=== PATIENT | male | born 1970 | race Asian ===

== ENCOUNTER 2019-02-20 00:08 | Emergency (ER) | payer OTHER ==
--- NOTE | 2019-02-20 01:13 | XRay Report ---
PROCEDURE: XR CHEST 1V AP TECHNIQUE: An upright view of the chest was obtained. HISTORY: Chest Pain COMPARISONS: None FINDINGS: A portion of the lateral aspect of the left hemithorax is cut off the image. The visualized lung fiel ds are clear. The heart size is normal. Pleural fluid is not seen. The skeletal structures do not federico w any acute changes. There is a pacemaker device overlying the left chest wall. IMPRESSION: No acute cardiopulmonary process. Suboptimal positioning.. This document is electronically signed by Ronald Mcdowell MD., February 20 2019 01:11:45 AM ET
[2019-02-20 01:27] LABS: Hematocrit 46.4 % (35.5-45.6); Hemoglobin 14.7 gm/dl (11.8-15.2); Mean Corpuscular HGB Conc 32 % (32-34); Platelet Count 279 K/mm3 (140-440); Red Blood Count 6.66 M/mm3 (3.65-5.03); Red Cell Distribution Width 15.1 % (13.2-15.2)
[2019-02-20 01:29] LABS: Mean Corpuscular Volume 70 fl (84-94)
[2019-02-20 02:00] LABS: BUN/Creatinine Ratio 7; Blood Urea Nitrogen 10 mg/dL (9-20); Calcium 9.1 mg/dL (8.4-10.2); Hemolysis Index 17
[2019-02-20] MEDS ORDERED: LOPRESSOR PO ONE (02:06)
--- NOTE | 2019-02-20 02:06 | Emergency Department Report ---
ED General Adult HPI - General Chief complaint: Arrhythmia/Palpitations Stated complaint: HEART PALPITATIONS Time Seen by Provider: 02/20/19 01:34 Source: patient, RN notes reviewed, old records reviewed Mode of arrival: Ambulatory Limitations: No Limitations - History of Present Illness Initial comments: This is a 48-year-old gentleman. The patient is not known to this provider previously. The patient has a current screw remover, Dr. Neal Jenkins, with [facility], and has a follow-up appointment March 20. Cardiology phone number; [phone]. Patient has a past history of atrial fibrillation, not currently on systemic anticoagulation, in 2017, an echocardiogram which showed normal left ventricular systolic function, with ejection fraction of 50-55%. Patient reports that his private screw remover has discontinued his antico agulation, and discontinued chitra blockade medications. The patient presents today with a complaint of pain was intermittent palpitations and sensation of heart racing. The symptoms are present for approximately 7 months. They're intermittent. They do not radiate anywhere. I do not have exacerbating or relieving factors. The patient denies DVT, pulmonary embolus risk factors. He denies physical pain. He denies change in exercise tolerance. He is following up closely with his outpatient screw remover, who has fitted him with an external recording device. The patient reports no drug use, reports that he works out on a frequent basis, and reports no stimulants consumption. -: Gradual, month(s) Severity scale (0 -10): 4 Consistency: intermittent Improves with: none Worsens with: none - Related Data Previous Rx's Medication Instructions Recorded Last Taken Type Apixaban [Eliquis] 5 mg PO Q12HR #60 tablet 05/16/17 Unknown Rx Aspirin EC [Aspirin Enteric Coated 81 mg PO QDAY #30 tablet 05/16/17 Unknown Rx TAB] Levothyroxine [Synthroid] 125 mcg PO QAM #30 tablet 05/16/17 Unknown Rx Lovastatin [Altoprev] 20 mg PO QPM #30 tab.er.24h 05/16/17 Unknown Rx Metoprolol [Lopressor TAB] 12.5 mg PO BID #60 tablet 05/16/17 Unknown Rx amLODIPine [Norvasc] 5 mg PO DAILY #30 tablet 05/16/17 Unknown Rx Aspirin [Aspirin BABY CHEW TAB] 81 mg PO QDAY #30 tab.chew 02/20/19 Unknown Rx Allergies Allergy/AdvReac Type Severity Reaction Status Date / Time No Known Allergies Allergy Verified 06/20/14 01:13 ED Review of Systems ROS: Stated complaint: HEART PALPITATIONS Other details as noted in HPI Constitutional: denies: fever, malaise Eyes: denies: vision change ENT: denies: epistaxis Respiratory: denies: cough Cardiovascular: palpitations. denies: chest pain Gastrointestinal: denies: abdominal pain, nausea, vomiting Genitourinary: denies: urgency, dysuria Musculoskeletal: denies: back pain Skin: denies: lesions Neurological: denies: headache, weakness Psychiatric: anxiety ED Past Medical Hx - Past Medical History Previous Medical History?: Yes Hx Hypertension: Yes Hx HIV: No Additional medical history: Chest pain. Hypothyroid - Surgical History Past Surgical History?: No - Social History Smoking Status: Never Smoker Substance Use Type: None - Medications Home Medications: Home Medications Medication Instructions Recorded Confirmed Last Taken Type Apixaban [Eliquis] 5 mg PO Q12HR #60 tablet 05/16/17 Unknown Rx Aspirin EC [Aspirin Enteric Coated 81 mg PO QDAY #30 tablet 05/16/17 Unknown Rx TAB] Levothyroxine [Synthroid] 125 mcg PO QAM #30 tablet 05/16/17 Unknown Rx Lovastatin [Altoprev] 20 mg PO QPM #30 tab.er.24h 05/16/17 Unknown Rx Metoprolol [Lopressor TAB] 12.5 mg PO BID #60 tablet 05/16/17 Unknown Rx amLODIPine [Norvasc] 5 mg PO DAILY #30 tablet 05/16/17 Unknown Rx Aspirin [Aspirin BABY CHEW TAB] 81 mg PO QDAY #30 tab.chew 02/20/19 Unknown Rx ED Physical Exam - General Limitations: No Limitations General appearance: alert, in no apparent distress - Head Head exam: Present: atraumatic, normocephalic - Eye Eye exam: Present: normal appearance, EOMI. Absent: nystagmus - ENT ENT exam: Present: normal exam, normal orophraynx, mucous membranes moist, normal external ear exam - Neck Neck exam: Present: normal inspection, full ROM. Absent: tenderness, meningismus - Respiratory Respiratory exam: Present: normal lung sounds bilaterally. Absent: respiratory distress - Cardiovascular Cardiovascular Exam: Present: regular rate, irregular rhythm, normal heart sounds. Absent: bradycardia, tachycardia, systolic murmur, diastolic murmur, rubs, gallop - GI/Abdominal GI/Abdominal exam: Present: soft. Absent: distended, tenderness, guarding, rebound, rigid, pulsatile mass - Rectal Rectal exam: Present: deferred - Extremities Exam Extremities exam: Present: normal inspection, full ROM, other (2+ pulses noted in the bilateral upper, lower extremities. Compartments soft. No long bony tenderness. The pelvis is stable.). Absent: pedal edema, joint swelling, calf tenderness - Back Exam Back exam: Present: normal inspection, full ROM. Absent: tenderness, CVA tenderness (R), paraspinal tenderness, vertebral tenderness - Neurological Exam Neurological exam: Present: alert, oriented X3, CN II-XII intact, normal gait, other (Extraocular movements intact. Tongue midline. No facial droop. Facial sensation intact to light touch in the V1, V2, V3 distribution bilaterally. 5 and 5 strength in 4 extremities.. Sensation is intact to light touch in 4 extremities.). Absent: motor sensory deficit - Psychiatric Psychiatric exam: Present: normal affect, normal mood, anxious - Skin Skin exam: Present: warm, dry, intact, normal color. Absent: rash ED Course Vital Signs 02/20/19 02/20/19 02/20/19 00:23 01:28 01:29 Temperature 97.6 F Pulse Rate 109 H 106 H Respiratory 16 19 22 Rate Blood Pressure 146/102 O2 Sat by Pulse 100 100 99 Oximetry 02/20/19 02/20/19 02/20/19 01:30 01:45 02:00 Temperature Pulse Rate 93 H 89 101 H Respiratory 22 14 10 L Rate Blood Pressure 128/88 129/91 120/90 O2 Sat by Pulse 100 100 100 Oximetry 02/20/19 02/20/19 02/20/19 02:15 02:20 02:31 Temperature Pulse Rate 94 H 78 74 Respiratory 19 22 Rate Blood Pressure 120/90 135/80 135/80 O2 Sat by Pulse 100 98 Oximetry 02/20/19 02/20/19 02/20/19 02:45 03:00 03:15 Temperature Pulse Rate 82 84 91 H Respiratory 20 11 L 18 Rate Blood Pressure 135/80 121/90 121/90 O2 Sat by Pulse 99 98 98 Oximetry 02/20/19 02/20/19 02/20/19 03:30 03:45 04:00 Temperature Pulse Rate 73 79 71 Respiratory 13 16 10 L Rate Blood Pressure 124/85 124/85 122/83 O2 Sat by Pulse 99 99 97 Oximetry 02/20/19 02/20/19 02/20/19 04:15 04:30 04:45 Temperature Pulse Rate 79 63 77 Respiratory 15 18 18 Rate Blood Pressure 122/83 133/72 133/72 O2 Sat by Pulse 99 97 99 Oximetry 02/20/19 02/20/19 05:00 05:15 Temperature Pulse Rate 67 74 Respiratory 13 13 Rate Blood Pressure 122/89 122/89 O2 Sat by Pulse 99 Oximetry - Reevaluation(s) Reevaluation #1: 02/20/19 05:32 Differential diagnosis, including but not limited to: Thyroid derangement, electrolyte derangement, conduction derangement, atrial fibrillation, atrial flutter Assessment and plan: 48-year-old gentleman with known history of A. fib, flutter, no pulmonary embolus or DVT risk factors, low risk by well's criteria, not hypoxic, reportedly a limited exercise tolerance, low risk by MINGO score, low risk by heart score, with variable rhythm. He is currently in atrial fibrillation, with very conduction. At certain points in time, he develops atrial tachycardia, with variable ventricular conduction, intermittent sinus part is, and intermittent sinus rhythm. His symptoms have been present for months, and he is not acutely decompensated. His EKGs were transmitted to my colleague screw remover on-call, Dr. Dorman, who evaluated his initial EKG and rhythm strips, and was in agreement that the patient did not appear to have a high-grade block, or potentially lethal rhythm. The patient is currently in flutter, and he is low risk by the Chads 2 vasc score Contacted the screw remover covering for his primary screw remover, Arias Segovia MD, and he indicated that Dr. Jenkins will be contacted during normal business hours, and at the patient will be given expedited follow-up. The patient is resting comfortably in the emergency room now, in no acute distress, hemodynamically stable. Aches when laboratory findings and EKG findings to the patient, as well as my discussion with his screw remover covering colleague. The patient is medically suitable to be discharged at this point in time. Return precautions are reviewed. ED Medical Decision Making - Lab Data Result diagrams: 02/20/19 01:04 02/20/19 01:04 Vital Signs 02/20/19 02/20/19 02/20/19 00:23 01:28 01:29 Temperature 97.6 F Pulse Rate 109 H 106 H Respiratory 16 19 22 Rate Blood Pressure 146/102 O2 Sat by Pulse 100 100 99 Oximetry 02/20/19 02/20/19 02/20/19 01:30 01:45 02:00 Temperature Pulse Rate 93 H 89 101 H Respiratory 22 14 10 L Rate Blood Pressure 128/88 129/91 120/90 O2 Sat by Pulse 100 100 100 Oximetry 02/20/19 02/20/19 02/20/19 02:15 02:20 02:31 Temperature Pulse Rate 94 H 78 74 Respiratory 19 22 Rate Blood Pressure 120/90 135/80 135/80 O2 Sat by Pulse 100 98 Oximetry 02/20/19 02/20/19 02/20/19 02:45 03:00 03:15 Temperature Pulse Rate 82 84 91 H Respiratory 20 11 L 18 Rate Blood Pressure 135/80 121/90 121/90 O2 Sat by Pulse 99 98 98 Oximetry 02/20/19 02/20/19 02/20/19 03:30 03:45 04:00 Temperature Pulse Rate 73 79 71 Respiratory 13 16 10 L Rate Blood Pressure 124/85 124/85 122/83 O2 Sat by Pulse 99 99 97 Oximetry 02/20/19 02/20/19 02/20/19 04:15 04:30 04:45 Temperature Pulse Rate 79 63 77 Respiratory 15 18 18 Rate Blood Pressure 122/83 133/72 133/72 O2 Sat by Pulse 99 97 99 Oximetry 02/20/19 02/20/19 05:00 05:15 Temperature Pulse Rate 67 74 Respiratory 13 13 Rate Blood Pressure 122/89 122/89 O2 Sat by Pulse 99 Oximetry Lab Results 02/20/19 02/20/19 02/20/19 Range/Units 01:04 01:04 02:23 WBC 4.2 L (4.5-11.0) K/mm3 RBC 6.66 H (3.65-5.03) M/mm3 Hgb 14.7 (11.8-15.2) gm/dl Hct 46.4 H (35.5-45.6) % MCV 70 L (84-94) fl MCH 22 L (28-32) pg MCHC 32 (32-34) % RDW 15.1 (13.2-15.2) % Plt Count 279 (140-440) K/mm3 Seg Neutrophils % Wardrobe Attendant Sodium 139 (137-145) mmol/L Potassium 4.4 (3.6-5.0) mmol/L Chloride 100.8 (98-107) mmol/L Carbon Dioxide 29 (22-30) mmol/L Anion Gap 14 mmol/L BUN 10 (9-20) mg/dL Creatinine 1.4 (0.8-1.5) mg/dL Estimated GFR 54 ml/min BUN/Creatinine Ratio 7 % Glucose 96 (75-100) mg/dL Calcium 9.1 (8.4-10.2) mg/dL Magnesium (1.7-2.3) mg/dL Troponin T < 0.010 < 0.010 (0.00-0.029) ng/mL TSH (0.270-4.200) mlU/mL 02/20/19 02/20/19 Range/Units 02:23 02:23 WBC (4.5-11.0) K/mm3 RBC (3.65-5.03) M/mm3 Hgb (11.8-15.2) gm/dl Hct (35.5-45.6) % MCV (84-94) fl MCH (28-32) pg MCHC (32-34) % RDW (13.2-15.2) % Plt Count (140-440) K/mm3 Seg Neutrophils % Sodium (137-145) mmol/L Potassium (3.6-5.0) mmol/L Chloride (98-107) mmol/L Carbon Dioxide (22-30) mmol/L Anion Gap mmol/L BUN (9-20) mg/dL Creatinine (0.8-1.5) mg/dL Estimated GFR ml/min BUN/Creatinine Ratio % Glucose (75-100) mg/dL Calcium (8.4-10.2) mg/dL Magnesium 2.00 (1.7-2.3) mg/dL Troponin T (0.00-0.029) ng/mL TSH 2.840 (0.270-4.200) mlU/mL - EKG Data 02/20/19 05:36 Atrial flutter, 59 bpm, normal axis, QTC prolonged, motion artifact, not consistent with ST elevation myocardial infarction. Variable ventricular rate. EKG #1 shows atrial tachycardia, variable ventricular conduction, atrial rate approximately 170 bpm, normal axis, QTC prolonged, MT interval prolonged, premature ventricular contractions, abnormal EKG, not consistent with ST elevation myocardial infarction. - Radiology Data Radiology results: report reviewed, image reviewed X-ray of the chest is negative for acute disease. Critical care attestation.: If time is entered above; I have spent that time in minutes in the direct care of this critically ill patient, excluding procedure time. ED Disposition Clinical Impression: Atrial flutter Disposition: DC- TO HOME OR SELFCARE Is pt being admited?: No Does the pt Need Aspirin: No Condition: Stable Instructions: Supraventricular Tachycardia (ED), Palpitations (ED) Additional Instructions: Avoid consumption of caffeinated beverages, stimulants, caffeine, make certain to get 7-8 hours of good quality sleep every night, and follow-up with your screw remover within the next 7-10 days. Take the aspirin as directed, return to the emergency room right away with you, worsen or different symptoms, or symptoms not present on initial ER evaluation. Referrals: [facility] [Provider Group] - 7-10 days
[2019-02-20 05:41] VITALS: BP 122/83
[2019-02-20 07:41] LABS: Hypochromasia 1+; Total Cells Counted 100
== END 2019-02-20 05:56 | disposition home or self-care (01) ==
LOC: ED 00:08
DX: I48.92 Unspecified atrial flutter (principal); I10 Essential (primary) hypertension; E03.9 Hypothyroidism, unspecified
CPT/HCPCS: 36415; 71045; 80048; 83735; 84443; 84484; 85007; 85025; 93005; 93010